=== PATIENT | female | born 1955 | race Caucasian/White ===

== ENCOUNTER → 2017-03-12 | Outpatient (CLI) | payer BC ==
--- NOTE | 2017-03-12 14:38 | CT ---
EXAMINATION TYPE: CT iac wo con DATE OF EXAM: 03/12/2017 COMPARISON: NONE HISTORY: Lt ear pain CT DLP: 150mGycm Automated exposure control for dose reduction was used. FINDINGS: The external auditory canals are patent bilaterally. Mastoid air cells show no evidence of abnormal opacification bilaterally. The middle ear ossicles are symmetric and unremarkable. There is no evidence of suspicious surrounding soft tissue density to suggest cholesteatoma. The scutum is preserved bilaterally. The cochlea and the semicircular canals are symmetric and unremarkable. Ves tibular aqueduct and internal carotid canal appear unremarkable. Temporomandibular joints are mainta ined bilaterally. IMPRESSION: 1. No suspicious acute changes
== END | disposition home or self-care (01) ==
LOC: RADCTMAIN 13:49
PROVIDERS: ATTEND Otolaryngology Otology & Neurotology
DX: H71.12 Cholesteatoma of tympanum, left ear (principal)
CPT/HCPCS: 70480

== ENCOUNTER → 2017-03-16 | Outpatient (CLI) | payer BC ==
--- NOTE | 2017-03-17 12:20 | MM ---
Reason for exam: screening (asymptomatic). Last mammogram was performed 1 year ago. History: Patient is postmenopausal. Family history of breast cancer in aunt and breast cancer in sister at age 62. Took hormonal contraceptives for 3 months beginning at age 19. Took estrogen beginning at age 52. Taking progesterone beginning at age 47. Taking other hormone beginning at age 47. Physical Findings: A clinical breast exam by your physician is recommended on an annual basis and results should be correlated with mammographic findings. MG 3D Screening Mammo W/Cad Bilateral CC and MLO view(s) were taken. Prior study comparison: March 11, 2016, bilateral MG 3d screening mammo w/cad. January 10, 2015, bilateral MG screening mammo w CAD. January 03, 2014, bilateral MG screening mammo w CAD. December 29, 2012, bilateral digital screening mammo w/CAD. The breast tissue is heterogeneously dense. This may lower the sensitivity of mammography. Possible 1.6cm obscured mass 9-10 o'clock right periareolar/subareolar region. Otherwise, no significant change. ASSESSMENT: Incomplete: need additional imaging evaluation, BI-RAD 0 RECOMMENDATION: Ultrasound of the right breast. [facility] will attempt to contact patient to return for ultrasound.
== END | disposition home or self-care (01) ==
LOC: RADMAMWWP 15:39
PROVIDERS: ATTEND Internal Medicine
DX: Z12.31 Encounter for screening mammogram for malignant neoplasm of breast (principal)
CPT/HCPCS: 77063; G0202

== ENCOUNTER → 2017-03-25 | Outpatient (CLI) | payer BC ==
--- NOTE | 2017-03-25 11:15 | USB ---
Reason for exam: additional evaluation requested from abnormal screening. History: Patient is postmenopausal. Family history of breast cancer in aunt and breast cancer in sister at age 62. Took hormonal contraceptives for 3 months beginning at age 19. Took estrogen beginning at age 52. Taking progesterone beginning at age 47. Taking other hormone beginning at age 47. Physical Findings: Nurse Summary: prominent tissue in the right upper outer quadrant/posterior nipples bilaterally all soft, movable (nurse ts). US Breast Workup Limited RT Technologist: Yecenia Parks Right breast ultrasound demonstrates a 1.9 x 0.5 x 0.6cm hypoechoic lesion at 9 o'clock for which a biopsy is recommended and duct ectasia at the posterior nipple. These results were verbally communicated with the patient and result sheet given to the patient on 03/25/17. ASSESSMENT: Suspicious, BI-RAD 4 RECOMMENDATION: Ultrasound core biopsy of the right breast. (9 o'clock) Called Dr. Ga with mammographic findings and has scheduled an appointment for the patient for 04/05/17 at 1:[address] Monson. PRELIMINARY REPORT CALLED AND FAXED TO DR. MONSON ON 03/25/17.
== END | disposition home or self-care (01) ==
LOC: RADUSWWP 09:31
PROVIDERS: ATTEND Internal Medicine
DX: R92.8 Other abnormal and inconclusive findings on diagnostic imaging of breast (principal)

== ENCOUNTER → 2018-04-04 | Outpatient (CLI) | payer BC ==
--- NOTE | 2018-04-05 08:54 | MM ---
Reason for exam: screening (asymptomatic). Last mammogram was performed 1 year ago. History: Patient is postmenopausal. Family history of breast cancer in aunt and breast cancer in sister at age 62. Benign US biopsy breast VAD RT of the right breast, April 14, 2017. Took hormonal contraceptives for 3 months beginning at age 19. Took estrogen beginning at age 52. Taking progesterone beginning at age 47. Taking other hormone beginning at age 47. Physical Findings: A clinical breast exam by your physician is recommended on an annual basis and results should be correlated with mammographic findings. MG 3D Screening Mammo W/Cad Bilateral CC and MLO view(s) were taken. Prior study comparison: April 14, 2017, right breast MG diagnostic mammo RT wo CAD. March 16, 2017, bilateral MG 3d screening mammo w/cad. The breast tissue is heterogeneously dense. This may lower the sensitivity of mammography. No suspicious abnormality. Right biopsy marker noted. No significant changes when compared with prior studies. ASSESSMENT: Negative, BI-RAD 1 RECOMMENDATION: Routine screening mammogram of both breasts in 1 year.
== END | disposition home or self-care (01) ==
LOC: RADMAMWWP 10:47
PROVIDERS: ATTEND Internal Medicine
DX: Z12.31 Encounter for screening mammogram for malignant neoplasm of breast (principal)
CPT/HCPCS: 77063; 77067

== ENCOUNTER 2019-07-21 10:56 | Observation (INO) | payer BC ==
--- NOTE | 2019-07-21 11:31 | ED ---
General Adult HPI - General Chief complaint: Skin/Abscess/Foreign Body Stated complaint: infection Time Seen by Provider: 07/21/19 11:19 Source: patient, RN notes reviewed Mode of arrival: ambulatory Limitations: no limitations - History of Present Illness Initial comments: Patient is a pleasant 63-year-old female presenting to the emergency department with complaints of right sided abdominal wound. Patient first noticed this a couple weeks ago. Patient has been on antibiotics, Bactrim and mupirocin ointment for the past 6 days. Patient did follow-up with her doctor symptoms have been worsening and she was advised come the emergency Department. No fevers however patient has had chills. No history of similar symptoms previously. - Related Data Home Medications Medication Instructions Recorded Confirmed Calcium Carbonate/Vitamin D3 1 each PO DAILY 04/06/17 04/14/17 [Calcium 500-Vit D3 200 Tablet] Cetirizine HCl 10 mg PO DAILY 04/06/17 04/14/17 Fluticasone Nasal [place] [Flonase 1 puff NASAL DAILY PRN 04/06/17 04/14/17 Nasal [place]] Potassium Gluconate 1 each PO DAILY 04/06/17 04/14/17 Allergies Allergy/AdvReac Type Severity Reaction Status Date / Time ciprofloxacin Allergy Swelling Verified 04/14/17 11:47 Latex, Natural Rubber Allergy Rash/Hives Verified 04/14/17 11:47 levofloxacin Allergy Anaphylaxis Verified 04/14/17 11:47 ofloxacin Allergy Swelling Verified 04/14/17 11:47 Penicillins Allergy Swelling Verified 04/14/17 11:47 Quinolones Allergy Swelling Verified 04/14/17 11:47 Review of Systems ROS Statement: Those systems with pertinent positive or pertinent negative responses have been documented in the HPI. ROS Other: All systems not noted in ROS Statement are negative. Constitutional: Reports: chills. Denies: fever Eyes: Denies: eye pain ENT: Denies: ear pain Respiratory: Denies: dyspnea Cardiovascular: Denies: chest pain Endocrine: Denies: fatigue Gastrointestinal: Denies: abdominal pain Genitourinary: Denies: dysuria Musculoskeletal: Denies: back pain Skin: Reports: as per HPI, rash Past Medical History Additional Past Medical History / Comment(s): macular degeneration, seasonal allergies History of Any Multi-Drug Resistant Organisms: None Reported Past Surgical History: Ear Surgery, Hysterectomy Additional Past Surgical History / Comment(s): mastiodectomy left ear Additional Past Anesthesia/Blood Transfusion Reaction / Comment(s): hallucinates after anesthesia Past Psychological History: No Psychological Hx Reported Smoking Status: Current every day smoker Past Alcohol Use History: Occasional Past Drug Use History: None Reported General Exam Limitations: no limitations General appearance: alert, in no apparent distress Head exam: Present: normocephalic Eye exam: Present: normal appearance Neck exam: Present: normal inspection Respiratory exam: Present: normal lung sounds bilaterally Cardiovascular Exam: Present: regular rate, normal rhythm GI/Abdominal exam: Present: soft. Absent: distended, tenderness (Except for owens perficial area of infection) Extremities exam: Present: normal inspection Neurological exam: Present: alert Psychiatric exam: Present: normal affect, normal mood Skin exam: Present: other (Right lower abdomen with approximately 4 x 4 centimeters area of induration and erythema. There is an open area with purulent drainage. There is tenderness.) Course Vital Signs 07/21/19 11:04 Temperature 99.0 F Pulse Rate 95 Respiratory 18 Rate Blood Pressure 148/77 O2 Sat by Pulse 95 Oximetry Medical Decision Making - Medical Decision Making Patient reevaluated and updated. Case was discussed with Dr. Ramirez, who will admit covered for Dr. ga. Patient's area does appear to be abscesses open and draining. Patient refuses I&D at this time and states she would need deep sedation. Patient has failed outpatient Bactrim and mupirocin ointment. - Lab Data Result diagrams: 07/21/19 11:59 07/21/19 11:59 Lab Results 07/21/19 07/21/19 07/21/19 Range/Units 11:59 11:59 11:59 WBC 8.6 (3.8-10.6) k/uL RBC 4.80 (3.80-5.40) m/uL Hgb 14.6 (11.4-16.0) gm/dL Hct 44.3 (34.0-46.0) % MCV 92.3 (80.0-100.0) fL MCH 30.5 (25.0-35.0) pg MCHC 33.0 (31.0-37.0) g/dL RDW 13.2 (11.5-15.5) % Plt Count 255 (150-450) k/uL Neutrophils % 69 % Lymphocytes % 18 % Monocytes % 6 % Eosinophils % 3 % Basophils % 3 % Neutrophils # 5.9 (1.3-7.7) k/uL Lymphocytes # 1.6 (1.0-4.8) k/uL Monocytes # 0.5 (0-1.0) k/uL Eosinophils # 0.3 (0-0.7) k/uL Basophils # 0.3 H (0-0.2) k/uL PT (9.0-12.0) sec INR (<1.2) APTT (22.0-30.0) sec Sodium 138 (137-145) mmol/L Potassium 4.5 (3.5-5.1) mmol/L Chloride 105 (98-107) mmol/L Carbon Dioxide 22 (22-30) mmol/L Anion Gap 11 mmol/L BUN 11 (7-17) mg/dL Creatinine 0.72 (0.52-1.04) mg/dL Est GFR (CKD-EPI)AfAm >90 (>60 ml/min/1.73 sqM) Est GFR (CKD-EPI)NonAf 90 (>60 ml/min/1.73 sqM) Glucose 123 H (74-99) mg/dL Plasma Lactic Acid Wilbert 1.4 (0.7-2.0) mmol/L Calcium 9.7 (8.4-10.2) mg/dL Total Bilirubin 0.4 (0.2-1.3) mg/dL AST 43 H (14-36) U/L ALT 53 H (4-34) U/L Alkaline Phosphatase 95 (38-126) U/L Total Protein 7.4 (6.3-8.2) g/dL Albumin 4.6 (3.5-5.0) g/dL 07/21/19 Range/Units 11:59 WBC (3.8-10.6) k/uL RBC (3.80-5.40) m/uL Hgb (11.4-16.0) gm/dL Hct (34.0-46.0) % MCV (80.0-100.0) fL MCH (25.0-35.0) pg MCHC (31.0-37.0) g/dL RDW (11.5-15.5) % Plt Count (150-450) k/uL Neutrophils % % Lymphocytes % % Monocytes % % Eosinophils % % Basophils % % Neutrophils # (1.3-7.7) k/uL Lymphocytes # (1.0-4.8) k/uL Monocytes # (0-1.0) k/uL Eosinophils # (0-0.7) k/uL Basophils # (0-0.2) k/uL PT 9.9 (9.0-12.0) sec INR 0.9 (<1.2) APTT 24.0 (22.0-30.0) sec Sodium (137-145) mmol/L Potassium (3.5-5.1) mmol/L Chloride (98-107) mmol/L Carbon Dioxide (22-30) mmol/L Anion Gap mmol/L BUN (7-17) mg/dL Creatinine (0.52-1.04) mg/dL Est GFR (CKD-EPI)AfAm (>60 ml/min/1.73 sqM) Est GFR (CKD-EPI)NonAf (>60 ml/min/1.73 sqM) Glucose (74-99) mg/dL Plasma Lactic Acid Wilbert (0.7-2.0) mmol/L Calcium (8.4-10.2) mg/dL Total Bilirubin (0.2-1.3) mg/dL AST (14-36) U/L ALT (4-34) U/L Alkaline Phosphatase (38-126) U/L Total Protein (6.3-8.2) g/dL Albumin (3.5-5.0) g/dL Disposition Clinical Impression: Abdominal wall abscess Disposition: ADMITTED IP TO THIS HOSP Is patient prescribed a controlled substance at d/c from ED?: No Referrals: Laura Ga MD [Primary Care Provider] - 1-2 days Decision Time: 13:07
[2019-07-21] MEDS: SODIUM CHLORIDE 0.9% 500 ML 500 ML IV SCH (12:08)
[2019-07-21 12:19] LABS: Basophils # (A) 0.3 k/uL (0-0.2); Basophils % (A) 3 %; Eosinophils # (A) 0.3 k/uL (0-0.7); Eosinophils % (A) 3 %; HCT 44.3 % (34.0-46.0); HGB 14.6 gm/dL (11.4-16.0); Lymphocytes # (A) 1.6 k/uL (1.0-4.8); Lymphocytes % (A) 18 %; MCH 30.5 pg (25.0-35.0); MCV 92.3 fL (80.0-100.0); Mean Platelet Volume 7.5; Monocytes # (A) 0.5 k/uL (0-1.0); Monocytes % (A) 6 %; Neutrophils # (A) 5.9 k/uL (1.3-7.7); Neutrophils % (A) 69 %; Platelet Count 255 k/uL (150-450); RDW 13.2 % (11.5-15.5); WBC 8.6 k/uL (3.8-10.6)
[2019-07-21 12:27] LABS: ALT 53 U/L (4-34); AST 43 U/L (14-36); African American GFR (CKD) >90 (>60 ml/min/1.73 sqM); Albumin 4.6 g/dL (3.5-5.0); Alkaline Phosphatase 95 U/L (38-126); Anion Gap 11 mmol/L; Blood Urea Nitrogen 11 mg/dL (7-17); Calcium 9.7 mg/dL (8.4-10.2); Carbon Dioxide 22 mmol/L (22-30); Chloride 105 mmol/L (98-107); Glucose 123 mg/dL (74-99); Non-African American GFR(CKD) 90 (>60 ml/min/1.73 sqM); Potassium 4.5 mmol/L (3.5-5.1); Sodium 138 mmol/L (137-145); Total Bilirubin 0.4 mg/dL (0.2-1.3); Total Protein 7.4 g/dL (6.3-8.2)
[2019-07-21] MEDS ORDERED: Acetaminophen-Codeine 300-30mg TAB PO STA (12:33)
[2019-07-21 12:53] LABS: INR 0.9 (<1.2); Prothrombin Time 9.9 sec (9.0-12.0)
[2019-07-21] MEDS ORDERED: cefTRIAXone IN SWFI 1,000 MG/10 ML SYRINGE IVP STA (13:08)
[2019-07-21] MEDS ORDERED: VANCOMYCIN IV PER PHARMACY 1 EACH MISC MISCELLANE PRN (13:08)
[2019-07-21] MEDS ORDERED: NALOXONE 0.4 MG/ML 1 ML VIAL IV PRN (13:09)
[2019-07-21] MEDS: SODIUM CHLORIDE 0.9% 1,000 ML IV SCH (13:34)
[2019-07-21] MEDS ORDERED: VANCOMYCIN 1,250 MG in SODIUM CHLORIDE 0.9% 250 ML IVPB ONE (14:00)
[2019-07-21] MEDS: NICOTINE 21MG/24HR PATCH TRANSDERM SCH (20:44)
[2019-07-21] MEDS: Acetaminophen-Codeine 300-30mg TAB PO PRN (20:44)
--- NOTE | 2019-07-21 23:08 | P.HPIM ---
History of Present Illness H&P Date: 07/21/19 Chief Complaint: Abdominal wound Patient is a 63-year-old female with a known history of macular degeneration, seasonal ALLERGIES, right sided hearing loss and ongoing nicotine addiction came to ER with the complaints of right-sided abdominal wound infection. Patient says that she's been having redness, developed due to rubbing of skin with her pants about 2 weeks ago and since then the redness is getting worse. Patient was seen by her primary care physician and was started on antibiotics in the form of Bactrim and also mupirocin ointment about a week ago. Upon follow-up with her primary care physician, noted to have worsening abdominal wound and possible fluid collection/abscess. Patient was sent to ER for further evaluation. Patient otherwise denied any complaints of chest pain or shortness of breath. No fever no chills. No nausea vomiting or abdominal pain or diarrhea. No dysuria or hematuria. Patient is ALLERGIC to multiple antibiotics. WBC 8.6, AST 43 and ALT 53 Review of Systems Constitutional: Patient denies any fever or chills . No generalized weakness or weight loss. Abdomen: Patient denied nausea vomiting and diarrhea and abdominal pain. Cardiovascular: Patient denies any chest pain or short of breath no palpitations. Respiratory: patient denied any cough is from production. No shortness of breath Neurologic: Patient denied any numbness or tingling headache. Musculoskeletal: Patient denies any complaints of joint swelling or deformity. Skin: Right sided abdominal wound. Psychiatric: Negative Endocrine: No heat or cold intolerance. No recent weight gain. Genitourinary: No dysuria or hematuria. All other 14 point ROS negative except the above Past Medical History Additional Past Medical History / Comment(s): macular degeneration, seasonal allergies History of Any Multi-Drug Resistant Organisms: None Reported Past Surgical History: Ear Surgery, Hysterectomy Additional Past Surgical History / Comment(s): mastiodectomy left ear Additional Past Anesthesia/Blood Transfusion Reaction / Comment(s): hallucinates after anesthesia Past Psychological History: No Psychological Hx Reported Additional Psychological History / Comment(s): Lives at home with spouse. Drives. Independent with ADL's Smoking Status: Current every day smoker Past Alcohol Use History: Occasional Past Drug Use History: None Reported - Past Family History Sister(s) Family Medical History: Cancer Father Family Medical History: Congestive Heart Failure (CHF) Medications and Allergies Home Medications Medication Instructions Recorded Confirmed Type Cetirizine HCl 10 mg PO DAILY 04/06/17 07/21/19 History Ascorbic Acid [Vitamin C] 500 mg PO DAILY 07/21/19 07/21/19 History Calcium Carbonate [Calcium] 600 mg PO DAILY 07/21/19 07/21/19 History Multivitamins, Thera [Multivitamin 1 tab PO DAILY 07/21/19 07/21/19 History (formulary)] Vit C/E/Zn/Coppr/Lutein/Zeaxan 1 cap PO DAILY 07/21/19 07/21/19 History [Preservision Areds 2 Softgel] Allergies Allergy/AdvReac Type Severity Reaction Status Date / Time ciprofloxacin Allergy Swelling Verified 07/21/19 14:30 Latex, Natural Rubber Allergy Rash/Hives Verified 07/21/19 14:30 levofloxacin Allergy Anaphylaxis Verified 07/21/19 14:30 ofloxacin Allergy Swelling Verified 07/21/19 14:30 Penicillins Allergy Swelling Verified 07/21/19 14:30 Quinolones Allergy Swelling Verified 07/21/19 14:30 Physical Exam Vitals: Vital Signs Temp Pulse Pulse Resp BP BP Pulse Ox 07/21/19 16:51 97.8 F 71 16 136/67 96 07/21/19 14:31 98.4 F 90 16 146/77 98 07/21/19 13:40 98.6 F 91 20 147/81 100 07/21/19 11:04 99.0 F 95 18 148/77 95 Intake and Output 07/21/19 07/21/19 07/21/19 06:59 14:59 22:59 Other: Weight 69.127 kg 69.127 kg PHYSICAL EXAMINATION: Patient is lying in the bed comfortably, no acute distress, awake alert and oriented.. HEENT: Normocephalic. Neck is supple. Pupils reactive. Nostrils clear. Oral cavity is moist. Ears reveal no drainage. Neck reveals no JVD, carotid bruits, or thyromegaly. CHEST EXAMINATION: Trachea is central. Symmetrical expansion. Lung ordoñez clear to auscultation and percussion. CARDIAC: Normal S1, S2 with no gallops. No murmurs ABDOMEN: Soft. Right lower abdominal wound with fluid collection with purulent discharge, tenderness present. Bowel sounds normal. No organomegaly. No abdominal bruits. Extremities: reveal no edema. No clubbing or cyanosis Neurologically awake, alert, oriented x3 with well-coordinated movements. No focal deficits noted Skin: No rash or skin lesions. Psychiatric: Coperative. Nonsuicidal Musculoskeletal: No joint swelling or deformity. Normal range of motion. Results CBC & Chem 7: 07/21/19 11:59 02 11:59 Labs: Abnormal Lab Results - Last 24 Hours (Table) 07/21/19 07/21/19 Range/Units 11:59 11:59 Basophils # 0.3 H (0-0.2) k/uL Glucose 123 H (74-99) mg/dL AST 43 H (14-36) U/L ALT 53 H (4-34) U/L Microbiology - Last 24 Hours (Table) 07/21/19 11:59 Wound Culture - Preliminary Abdomen Thrombosis Risk Factor Assmnt - DVT/VTE Prophylaxis DVT/VTE Prophylaxis: Pharmacologic Prophylaxis ordered - Choose All That Apply Each Risk Factor Represents 2 Points: Age 61-74 years Thrombosis Risk Factor Assessment Total Risk Factor Score: 2 Thrombosis Risk Factor Assessment Level: Low Risk Assessment and Plan Assessment: Right-sided abdominal abscess with surrounding cellulitis. Failed outpatient therapy with Bactrim. Multiple antibiotic ALLERGIES Right-sided hearing difficulty Currently with a smoker Macular degeneration Seasonal ALLERGIES DVT prophylaxis Plan: Patient be continued on antibiotics in the form of vancomycin. Gentle hydration. Gen. surgery was consulted for possible I&D. Follow up wound culture reports. Further recommendations based on the clinical course. Smoking cessation has been counseled extensively Time with Patient: Greater than 30
[2019-07-21] MEDS: HEPARIN SODIUM,PORCINE 5,000 UNIT/ML 1 ML VIAL SQ SCH (23:34)
[2019-07-22] MEDS: SODIUM CHLORIDE 0.9% 1,000 ML IV SCH ×2 (02:13→13:57)
[2019-07-22] MEDS: VANCOMYCIN 1,250 MG in SODIUM CHLORIDE 0.9% 250 ML IVPB SCH ×2 (06:04→22:04)
[2019-07-22] MEDS: HEPARIN SODIUM,PORCINE 5,000 UNIT/ML 1 ML VIAL SQ SCH ×3 (07:21→22:07)
[2019-07-22] MEDS: ASCORBIC ACID 500 MG TAB PO SCH (07:22)
[2019-07-22] MEDS: VIT A,C & E-LUTEIN-MINERALS 1 EACH TAB PO SCH (07:22)
[2019-07-22] MEDS: MULTIVITAMINS, THERA 1 EACH TAB PO SCH (07:22)
[2019-07-22] MEDS: CALCIUM CARBONATE 500 MG CHEWABLE PO SCH (07:22)
[2019-07-22] MEDS: NICOTINE 21MG/24HR PATCH TRANSDERM SCH (07:22)
[2019-07-22 08:27] LABS: Basophils # (A) 0.1 k/uL (0-0.2); Basophils % (A) 1 %; Eosinophils # (A) 0.3 k/uL (0-0.7); Eosinophils % (A) 4 %; HCT 40.7 % (34.0-46.0); HGB 13.3 gm/dL (11.4-16.0); Lymphocytes # (A) 1.8 k/uL (1.0-4.8); Lymphocytes % (A) 26 %; MCH 30.6 pg (25.0-35.0); MCHC 32.7 g/dL (31.0-37.0); MCV 93.7 fL (80.0-100.0); Mean Platelet Volume 7.4; Monocytes # (A) 0.4 k/uL (0-1.0); Monocytes % (A) 6 %; Neutrophils # (A) 4.1 k/uL (1.3-7.7); Neutrophils % (A) 60 %; Platelet Count 234 k/uL (150-450); RBC 4.34 m/uL (3.80-5.40); RDW 13.2 % (11.5-15.5); WBC 6.7 k/uL (3.8-10.6)
--- NOTE | 2019-07-22 11:44 | P.GSCN ---
History of Present Illness Consult date: 07/22/19 Reason for Consult: Abdominal wall abscess History of present illness: This a 63-year-old female who has had complaints of intermittent swelling of her right lower quadrant abdominal wall. Patient was treated with oral antibodies. Patient developed an abscess which which spontaneously drained. Patient currently receiving IV antibiotics. Past Medical History Additional Past Medical History / Comment(s): macular degeneration, seasonal allergies History of Any Multi-Drug Resistant Organisms: None Reported Past Surgical History: Ear Surgery, Hysterectomy Additional Past Surgical History / Comment(s): mastiodectomy left ear Additional Past Anesthesia/Blood Transfusion Reaction / Comm: hallucinates after anesthesia Past Psychological History: No Psychological Hx Reported Additional Psychological History / Comment(s): Lives at home with spouse. Drives. Independent with ADL's Smoking Status: Current every day smoker Past Alcohol Use History: Occasional Past Drug Use History: None Reported - Past Family History Sister(s) Family Medical History: Cancer Father Family Medical History: Congestive Heart Failure (CHF) Medications and Allergies Home Medications Medication Instructions Recorded Confirmed Type Cetirizine HCl 10 mg PO DAILY 04/06/17 07/21/19 History Ascorbic Acid [Vitamin C] 500 mg PO DAILY 07/21/19 07/21/19 History Calcium Carbonate [Calcium] 600 mg PO DAILY 07/21/19 07/21/19 History Multivitamins, Thera [Multivitamin 1 tab PO DAILY 07/21/19 07/21/19 History (formulary)] Vit C/E/Zn/Coppr/Lutein/Zeaxan 1 cap PO DAILY 07/21/19 07/21/19 History [Preservision Areds 2 Softgel] Allergies Allergy/AdvReac Type Severity Reaction Status Date / Time ciprofloxacin Allergy Swelling Verified 07/21/19 14:30 Latex, Natural Rubber Allergy Rash/Hives Verified 07/21/19 14:30 levofloxacin Allergy Anaphylaxis Verified 07/21/19 14:30 ofloxacin Allergy Swelling Verified 07/21/19 14:30 Penicillins Allergy Swelling Verified 07/21/19 14:30 Quinolones Allergy Swelling Verified 07/21/19 14:30 Surgical - Exam Vital Signs Temp Pulse Resp BP Pulse Ox 99.0 F 95 18 148/77 95 07/21/19 11:04 07/21/19 11:04 07/21/19 11:04 07/21/19 11:04 07/21/19 11:04 - General well developed, no distress - Eyes PERRL - ENT normal pinna - Neck no masses - Respiratory normal expansion - Cardiovascular Rhythm: regular - Abdomen Abdomen: soft, non tender - Integumentary 3 cm right lower quadrant abscess. The abscess is pointing to drain. It is mildly tender. Patient states that it is improved from yesterday. Results - Labs 07/22/19 07:36 07/21/19 11:59 Abnormal Lab Results - Last 24 Hours (Table) 07/21/19 07/21/19 Range/Units 11:59 11:59 Basophils # 0.3 H (0-0.2) k/uL Glucose 123 H (74-99) mg/dL AST 43 H (14-36) U/L ALT 53 H (4-34) U/L Microbiology - Last 24 Hours (Table) 07/21/19 11:59 Gram Stain - Preliminary Abdomen Wound Culture - Preliminary Diabetes panel 07/21/19 Range/Units 11:59 Sodium 138 (137-145) mmol/L Potassium 4.5 (3.5-5.1) mmol/L Chloride 105 (98-107) mmol/L Carbon Dioxide 22 (22-30) mmol/L BUN 11 (7-17) mg/dL Creatinine 0.72 (0.52-1.04) mg/dL Glucose 123 H (74-99) mg/dL Calcium 9.7 (8.4-10.2) mg/dL AST 43 H (14-36) U/L ALT 53 H (4-34) U/L Alkaline Phosphatase 95 (38-126) U/L Total Protein 7.4 (6.3-8.2) g/dL Albumin 4.6 (3.5-5.0) g/dL Calcium panel 07/21/19 Range/Units 11:59 Calcium 9.7 (8.4-10.2) mg/dL Albumin 4.6 (3.5-5.0) g/dL Pituitary panel 07/21/19 Range/Units 11:59 Sodium 138 (137-145) mmol/L Potassium 4.5 (3.5-5.1) mmol/L Chloride 105 (98-107) mmol/L Carbon Dioxide 22 (22-30) mmol/L BUN 11 (7-17) mg/dL Creatinine 0.72 (0.52-1.04) mg/dL Glucose 123 H (74-99) mg/dL Calcium 9.7 (8.4-10.2) mg/dL Adrenal panel 07/21/19 Range/Units 11:59 Sodium 138 (137-145) mmol/L Potassium 4.5 (3.5-5.1) mmol/L Chloride 105 (98-107) mmol/L Carbon Dioxide 22 (22-30) mmol/L BUN 11 (7-17) mg/dL Creatinine 0.72 (0.52-1.04) mg/dL Glucose 123 H (74-99) mg/dL Calcium 9.7 (8.4-10.2) mg/dL Total Bilirubin 0.4 (0.2-1.3) mg/dL AST 43 H (14-36) U/L ALT 53 H (4-34) U/L Alkaline Phosphatase 95 (38-126) U/L Total Protein 7.4 (6.3-8.2) g/dL Albumin 4.6 (3.5-5.0) g/dL Assessment and Plan Assessment: Right lower quadrant subcutaneous abscess. The abscess drained. We will observe her. If needed she'll undergo incision and drainage tomorrow.
[2019-07-22] MEDS: Acetaminophen-Codeine 300-30mg TAB PO PRN (20:24)
--- NOTE | 2019-07-23 | P.PN ---
Subjective Progress Note Date: 07/22/19 Ms. Pearson is a 63-year-old female with a known history of macular degeneration, seasonal ALLERGIES, right sided hearing loss and ongoing nicotine addiction came to ER with the complaints of right-sided abdominal wound infection. Patient says that she's been having redness, developed due to rubbing of skin with her pants about 2 weeks ago and since then the redness is getting worse. Patient was seen by her primary care physician and was started on antibiotics in the form of Bactrim and also mupirocin ointment about a week ago. Upon follow-up with her primary care physician, noted to have worsening abdominal wound and possible fluid collection/abscess. Patient was sent to ER for further evaluat ion.Due to patient's multiple drug allergies she has been started on vancomycin and general surgery consult was obtained. On 07/22/2019 --patient is comfortably lying in bed appears to be no acute distress. She complains of pain in the right side of the lower abdomen where she has the abscess. She states that it is still draining pus. Patient denies having any nausea vomiting or constipation. No chest pain or palpitations. No dysuria or hematuria. Objective - Vital Signs Vital signs: Vital Signs Temp 98.0 F 07/22/19 14:29 Pulse 79 07/22/19 14:29 Resp 16 07/22/19 14:29 BP 143/70 07/22/19 14:29 Pulse Ox 96 07/22/19 14:29 Intake & Output 07/21/19 07/22/19 07/22/19 18:59 06:59 18:59 Intake Total 600 Balance 600 Weight 69.127 kg Intake: Oral 600 Other: Voiding Method Toilet # Voids 2 2 - Exam GEN. APPEARANCE: alert, in no apparent distress HEENT : No pallor, no icterus, No JVD RESPIRATORY EXAM: normal lung sounds bilaterally. Absent: respiratory distress, wheezes, rales, rhonchi, stridor CARDIOVASCULAR EXAM: regular rate, normal rhythm, normal heart sounds. Absent: systolic murmur, diastolic murmur, rubs, gallop, clicks GI/ABDOMINAL EXAM: soft, normal bowel sounds. Right lower abdominal wall abscess .+ tenderness with surrounding redness. EXTREMITIES EXAM: N edema NEUROLOGICAL EXAM: alert, oriented X3,no focal deficits - Labs CBC & Chem 7: 07/22/19 07:36 07/21/19 11:59 Labs: Microbiology - Last 24 Hours (Table) 07/21/19 12:18 Blood Culture - Preliminary Blood No Growth after 24 hours 07/21/19 11:59 Blood Culture - Preliminary Blood No Growth after 24 hours 07/21/19 11:59 Gram Stain - Preliminary Abdomen Wound Culture - Preliminary Assessment and Plan Assessment: Assessment: Right-sided abdominal abscess with surrounding cellulitis. Failed outpatient therapy with Bactrim. Multiple antibiotic ALLERGIES Right-sided hearing difficulty Currently daily smoker Macular degeneration Seasonal ALLERGIES DVT prophylaxis Plan: Patient be continued on antibiotics in the form of vancomycin. Gentle hydration. Gen. surgery on board for possible I&D. Follow up wound culture reports. Further recommendations based on the clinical course.
[2019-07-23] MEDS: SODIUM CHLORIDE 0.9% 1,000 ML IV SCH ×2 (05:15→20:09)
[2019-07-23] MEDS: HEPARIN SODIUM,PORCINE 5,000 UNIT/ML 1 ML VIAL SQ SCH ×2 (07:50→13:38)
[2019-07-23] MEDS: VIT A,C & E-LUTEIN-MINERALS 1 EACH TAB PO SCH (07:51)
[2019-07-23] MEDS: NICOTINE 21MG/24HR PATCH TRANSDERM SCH (07:52)
[2019-07-23] MEDS: MULTIVITAMINS, THERA 1 EACH TAB PO SCH (07:52)
[2019-07-23] MEDS: ASCORBIC ACID 500 MG TAB PO SCH (07:52)
[2019-07-23] MEDS: CALCIUM CARBONATE 500 MG CHEWABLE PO SCH (07:55)
[2019-07-23 09:38] LABS: Basophils # (A) 0.1 k/uL (0-0.2); Basophils % (A) 2 %; Eosinophils # (A) 0.3 k/uL (0-0.7); Eosinophils % (A) 3 %; HCT 41.5 % (34.0-46.0); HGB 13.8 gm/dL (11.4-16.0); Lymphocytes # (A) 1.6 k/uL (1.0-4.8); Lymphocytes % (A) 19 %; MCH 30.4 pg (25.0-35.0); MCHC 33.3 g/dL (31.0-37.0); MCV 91.3 fL (80.0-100.0); Mean Platelet Volume 7.3; Monocytes # (A) 0.4 k/uL (0-1.0); Monocytes % (A) 5 %; Neutrophils # (A) 5.7 k/uL (1.3-7.7); Neutrophils % (A) 68 %; Platelet Count 279 k/uL (150-450); RBC 4.55 m/uL (3.80-5.40); RDW 13.1 % (11.5-15.5); WBC 8.4 k/uL (3.8-10.6)
[2019-07-23 09:54] LABS: African American GFR (CKD) >90 (>60 ml/min/1.73 sqM); Anion Gap 7 mmol/L; Blood Urea Nitrogen 10 mg/dL (7-17); Calcium 9.5 mg/dL (8.4-10.2); Carbon Dioxide 26 mmol/L (22-30); Chloride 106 mmol/L (98-107); Glucose 104 mg/dL (74-99); Non-African American GFR(CKD) >90 (>60 ml/min/1.73 sqM); Potassium 4.4 mmol/L (3.5-5.1); Sodium 139 mmol/L (137-145)
[2019-07-23] MEDS: Acetaminophen-Codeine 300-30mg TAB PO PRN ×2 (10:27→21:25)
--- NOTE | 2019-07-23 10:55 | P.PN ---
Progress Note - Text Progress Note Date: 07/23/19 The patient's right lower quadrant abdominal wall abscess improving. She's had significant drainage overnight. There is less erythema and induration. We will continue local wound care and IV antibiotics.
[2019-07-23] MEDS: VANCOMYCIN 1,250 MG in SODIUM CHLORIDE 0.9% 250 ML IVPB SCH (13:35)
--- NOTE | 2019-07-23 22:41 | P.CONS ---
History of Present Illness - Reason for Consult Consult date: 07/23/19 abdominal wall abscess and cellulitis Requesting physician: Starr Jones - Chief Complaint right lower abdominal wall wound and redness x weeks - History of Present Illness Patient is a 63-year-old female presenting to the ER at [facility] on 07/21/2019 with C complaints of right-sided abdominal wound and swelling, apparently the patient noticed small area of swelling on the right-sided abdominal wall couple of weeks ago that has been treated in the past with Bactrim and Bactroban cream patient on follow-up visit noticed to have persistent swelling and redness has the patient was advised to go to the hospital, patient was evaluated by the ER physician, patient on presentation hospital did have low-grade fever of 99 however her white count has been normal the patient has been treated with Rocephin and vancomycin local cultures have b een up and which are currently pending infectious disease was consulted for further recommendation regarding antibiotic therapy patient has been evaluated by general surgery recommended no surgical drainage at this point Review of Systems Positive point has been mentioned in the HPI rest of the systems are negative Past Medical History Additional Past Medical History / Comment(s): macular degeneration, seasonal allergies History of Any Multi-Drug Resistant Organisms: None Reported Past Surgical History: Ear Surgery, Hysterectomy Additional Past Surgical History / Comment(s): mastiodectomy left ear Additional Past Anesthesia/Blood Transfusion Reaction / Comm: hallucinates after anesthesia Past Psychological History: No Psychological Hx Reported Additional Psychological History / Comment(s): Lives at home with spouse. Drives. Independent with ADL's Smoking Status: Current every day smoker Past Alcohol Use History: Occasional Past Drug Use History: None Reported - Past Family History Sister(s) Family Medical History: Cancer Father Family Medical History: Congestive Heart Failure (CHF) Medications and Allergies Home Medications Medication Instructions Recorded Confirmed Type Cetirizine HCl 10 mg PO DAILY 04/06/17 07/21/19 History Ascorbic Acid [Vitamin C] 500 mg PO DAILY 07/21/19 07/21/19 History Calcium Carbonate [Calcium] 600 mg PO DAILY 07/21/19 07/21/19 History Multivitamins, Thera [Multivitamin 1 tab PO DAILY 07/21/19 07/21/19 History (formulary)] Vit C/E/Zn/Coppr/Lutein/Zeaxan 1 cap PO DAILY 07/21/19 07/21/19 History [Preservision Areds 2 Softgel] Allergies Allergy/AdvReac Type Severity Reaction Status Date / Time ciprofloxacin Allergy Swelling Verified 07/21/19 14:30 Latex, Natural Rubber Allergy Rash/Hives Verified 07/21/19 14:30 levofloxacin Allergy Anaphylaxis Verified 07/21/19 14:30 ofloxacin Allergy Swelling Verified 07/21/19 14:30 Penicillins Allergy Swelling Verified 07/21/19 14:30 Quinolones Allergy Swelling Verified 07/21/19 14:30 Physical Exam Vitals: Vital Signs Temp Pulse Resp BP Pulse Ox 07/23/19 15:00 98.2 F 80 16 171/73 96 07/23/19 05:00 98.2 F 80 18 134/62 95 Intake and Output 07/23/19 07/23/19 07/23/19 06:59 14:59 22:59 Intake Total 0 200 Balance 0 200 Intake: Oral 0 200 Other: Voiding Method Toilet Toilet Toilet # Voids 2 2 1 GENERAL DESCRIPTION: Middle-aged female lying in bed, no distress. No tachypnea or accessory muscle of respiration use. HEENT: Shows Pallor , no scleral icterus. Oral mucous membrane is dry. No pharyngeal erythema or thrush NECK: Trachea central, no thyromegaly. LUNGS: Unlabored breathing. Clear to auscultation anteriorly. No wheeze or crackle. HEART: S1, S2, regular rate and rhythm. No loud murmur ABDOMEN: Soft, right lower quadrant abdominal wound with some drainage on the d ressing, mild tenderness , no guarding or rigidity, no organomegaly EXTREMITIES: No edema of feet. SKIN: No rash, no masses palpable. NEUROLOGICAL: The patient is awake, alert, oriented x3, mood and affect normal. Results CBC & Chem 7: 07/23/19 08:57 07/23/19 08:57 Labs: Abnormal Lab Results - Last 24 Hours (Table) 07/23/19 Range/Units 08:57 Glucose 104 H (74-99) mg/dL Microbiology - Last 24 Hours (Table) 07/21/19 12:18 Blood Culture - Preliminary Blood No Growth after 48 hours 07/21/19 11:59 Gram Stain - Final Abdomen Wound Culture - Final 07/21/19 11:59 Blood Culture - Preliminary Blood No Growth after 48 hours Assessment and Plan Assessment: 1- patient with abdominal wall abscess and cellulitis which apparently has been going on for a few weeks and has failed outpatient oral Bactrim DS and Bactroban treatment patient did have some spontaneous drainage however the area is still indurated patient did need workup to determine the depth of this infection and dementia not communicating with the bowel 2-Patient with multiple antibiotic ALLERGIES that would limit the number of antibiotic safe to use (1) Abdominal wall abscess Current Visit: Yes Status: Acute Code(s): L02.211 - CUTANEOUS ABSCESS OF ABDOMINAL WALL SNOMED Code(s): 54348995 Plan: 1- plan CT of abdominal pelvis to determine the depth of this abscess and dementia not communicating with the bowel 2-Vancomycin pharmacy to dose target trough of 15 while watching his kidney function and Vanco trough closely We will follow on clinical condition and cultures to further adjust medication if needed Thank you for this consultation will follow this patient with you Time with Patient: Greater than 30
[2019-07-23] MEDS ORDERED: IOPAMIDOL CONTRAST (ORAL USE) VIAL PO PRN (23:00)
[2019-07-24] MEDS: HEPARIN SODIUM,PORCINE 5,000 UNIT/ML 1 ML VIAL SQ SCH ×3 (01:06→15:57)
[2019-07-24] MEDS: VANCOMYCIN 1,250 MG in SODIUM CHLORIDE 0.9% 250 ML IVPB SCH ×2 (01:07→15:55)
[2019-07-24] MEDS: IOPAMIDOL CONTRAST (ORAL USE) VIAL PO PRN ×2 (06:23→06:24)
[2019-07-24] MEDS: CALCIUM CARBONATE 500 MG CHEWABLE PO SCH (08:26)
[2019-07-24] MEDS: NICOTINE 21MG/24HR PATCH TRANSDERM SCH (08:26)
[2019-07-24] MEDS: ASCORBIC ACID 500 MG TAB PO SCH (08:26)
[2019-07-24] MEDS: MULTIVITAMINS, THERA 1 EACH TAB PO SCH (08:26)
[2019-07-24] MEDS: VIT A,C & E-LUTEIN-MINERALS 1 EACH TAB PO SCH (08:32)
[2019-07-24] MEDS: SODIUM CHLORIDE 0.9% 1,000 ML IV SCH ×2 (08:36→20:18)
[2019-07-24 09:01] LABS: African American GFR (CKD) >90 (>60 ml/min/1.73 sqM); Non-African American GFR(CKD) >90 (>60 ml/min/1.73 sqM)
--- NOTE | 2019-07-24 10:25 | CT ---
EXAMINATION TYPE: CT abdomen pelvis w con DATE OF EXAM: 07/24/2019 COMPARISON: None INDICATION: Right lower quadrant pain, abscess, diarrhea DLP: 752.1 mGycm, Automated exposure control for dose reduction was used. CONTRAST: 100 mL of Isovue 300. Study performed with Oral Contrast TECHNIQUE: Axial images were obtained from above the diaphragm to the pubic rami in the axial plane a t 5 mm thick sections. Reconstructed images are reviewed on the computer in the coronal plane. FINDINGS: Limited CT sections are obtained the lung bases. Minimal streak atelectasis within the lingula.. CT ABDOMEN: Liver: There is mild to moderate fatty infiltration liver. No discrete masses or cysts are evident. Spleen: Normal Pancreas: Normal Adrenal glands: The adrenal glands are normal. Gallbladder: Normal Kidneys: No masses are evident. No hydronephrosis is present. No cysts are present. Delayed images were obtained through the kidneys, which remain unremarkable. Aorta: Vascular calcification is within the aorta. Inferior vena cava: Normal. CT PELVIS: Loops of bowel within the abdomen and pelvis are normal. There are loops of bowel which are incom pletely distended or lack oral contrast limiting their evaluation. Appendix: There appears to be the appendix is Normal as visualized. Urinary bladder: Normal. Genitourinary structures: Uterus and ovaries are not identified. Osseous structures: No suspicious lytic or sclerotic lesions. IMPRESSIONS: 1. No suspicious collection to suggest abscess in the right lower quadrant. Contrast filled tubular structure appears to be the appendix. There are some diverticular changes within the colon. No acute diverticulitis is evident.
--- NOTE | 2019-07-24 11:33 | P.PN ---
Subjective Progress Note Date: 07/24/19 CHIEF COMPLAINT: Abdominal wall abscess HISTORY OF PRESENT ILLNESS: Patient seen and examined this morning at the bedside. She reports her pain is tolerable to her abdominal wall abscess. She reports increased drainage overnight from site. CT completed this morning without evidence of abscess. PHYSICAL EXAM: VITAL SIGNS: Reviewed. GENERAL: Well-developed in no acute distress. HEENT: No sclera icterus. Extraocular movements grossly intact. Moist buccal mucosa. Head is atraumatic, normocephalic. ABDOMEN: Soft. Nondistended. Nontender. Open draining abscess to right lower quadrant. NEUROLOGIC: Alert and oriented. Cranial nerves II through XII grossly intact. ASSESSMENT: 1. Right lower quadrant abdominal wall abscess PLAN: Continue antibiotics per infectious disease Continue local wound care Will re-evaluate wound tomorrow. Possible bedside I&D tomorrow by Dr. Harper Nurse practitioner note has been reviewed by physician. Signing provider agrees with the documented findings, assessment, and plan of care. Objective - Vital Signs Vital signs: Vital Signs Temp 97.7 F 07/24/19 06:17 Pulse 90 07/24/19 06:17 Resp 18 07/24/19 08:00 BP 153/78 07/24/19 06:17 Pulse Ox 91 L 07/24/19 06:17 Intake & Output 07/23/19 07/24/19 07/24/19 18:59 06:59 18:59 Intake Total 200 Balance 200 Intake: Oral 200 Other: Voiding Method Toilet Toilet # Voids 2 1 1 - Labs CBC & Chem 7: 07/23/19 08:57 07/24/19 08:31 Labs: Microbiology - Last 24 Hours (Table) 07/21/19 12:18 Blood Culture - Preliminary Blood No Growth after 48 hours 07/21/19 11:59 Gram Stain - Final Abdomen Wound Culture - Final 07/21/19 11:59 Blood Culture - Preliminary Blood No Growth after 48 hours
[2019-07-24] MEDS: Acetaminophen-Codeine 300-30mg TAB PO PRN ×2 (12:17→20:15)
[2019-07-24] MEDS ORDERED: VANCOMYCIN TROUGH DUE 1 EACH MISC MISCELLANE ONE (13:00)
--- NOTE | 2019-07-24 22:39 | P.PN ---
Subjective Progress Note Date: 07/23/19 Principal diagnosis: Abdominal wall abscess Ms. Pearson is a 63-year-old female with a known history of macular degeneration, seasonal ALLERGIES, right sided hearing loss and ongoing nicotine addiction came to ER with the complaints of right-sided abdominal wound infection. Patient says that she's been having redness, developed due to rubbing of skin with her pants about 2 weeks ago and since then the redness is getting worse. Patient was seen by her primary care physician and was started on antibiotics in the form of Bactrim and also mupirocin ointment about a week ago. Upon follow-up with her primary care physician, noted to have worsening abdominal wound and possible fluid collection/abscess. Patient was sent to ER for further evaluation.Due to patient's multiple drug allergies she has been started on vancomycin and general surgery consult was obtained. On 07/23/2019 - Patient is sitting up in a chair by the bedside and states that she still has been draining a lot of pus from the wound. She thinks the size has decreased from yesterday. Patient denies having any fevers chills or rigors. No chest pain or palpitations. No cough or difficulty in breathing. She is being continued on antibiotics as per ID recommendations. She was james luated by surgery and they are advised to continue with local wound care for now. Objective - Vital Signs Vital signs: Vital Signs Temp 98.2 F 07/23/19 15:00 Pulse 80 07/23/19 15:00 Resp 16 07/23/19 15:00 BP 171/73 07/23/19 15:00 Pulse Ox 96 07/23/19 15:00 Intake & Output 07/22/19 07/23/19 07/23/19 18:59 06:59 18:59 Intake Total 400 350 200 Balance 400 350 200 Intake: Oral 400 350 200 Other: Voiding Method Toilet Toilet Toilet # Voids 2 2 2 - Exam GEN. APPEARANCE: alert, in no apparent distress HEENT : No pallor, no icterus, No JVD RESPIRATORY EXAM: normal lung sounds bilaterally. Absent: respiratory distress, wheezes, rales, rhonchi, stridor CARDIOVASCULAR EXAM: regular rate, normal rhythm, normal heart sounds. Absent: systolic murmur, diastolic murmur, rubs, gallop, clicks GI/ABDOMINAL EXAM: soft, normal bowel sounds. Right lower abdominal wall abscess , + tenderness with surrounding redness. Pus draining from open wound. EXTREMITIES EXAM: No edema NEUROLOGICAL EXAM: alert, oriented X3,no focal deficits - Labs CBC & Chem 7: 07/23/19 08:57 07/24/19 08:31 Labs: Abnormal Lab Results - Last 24 Hours (Table) 07/23/19 Range/Units 08:57 Glucose 104 H (74-99) mg/dL Microbiology - Last 24 Hours (Table) 07/21/19 12:18 Blood Culture - Preliminary Blood No Growth after 48 hours 07/21/19 11:59 Gram Stain - Final Abdomen Wound Culture - Final 07/21/19 11:59 Blood Culture - Preliminary Blood No Growth after 48 hours Assessment and Plan Assessment: Assessment: Right-sided abdominal abscess with surrounding cellulitis. Failed outpatient therapy with Bactrim. Multiple antibiotic ALLERGIES Right-sided hearing difficulty Currently daily smoker Macular degeneration Seasonal ALLERGIES DVT prophylaxis Plan: Patient be continued on antibiotics in the form of vancomycin and Ceftriaxone. Gentle hydration. Gen. surgery on board for possible I&D. Follow up wound culture reports. Further recommendations based on the clinical course.
[2019-07-24 23:01] VITALS: RESP 18; TEMP 98.3
--- NOTE | 2019-07-24 23:43 | P.PN ---
Subjective Progress Note Date: 07/24/19 Principal diagnosis: Abdominal wall abscess Ms. Pearson is a 63-year-old female with a known history of macular degeneration, seasonal ALLERGIES, right sided hearing loss and ongoing nicotine addiction came to ER with the complaints of right-sided abdominal wound infection. Patient says that she's been having redness, developed due to rubbing of skin with her pants about 2 weeks ago and since then the redness is getting worse. Patient was seen by her primary care physician and was started on antibiotics in the form of Bactrim and also mupirocin ointment about a week ago. Upon follow-up with her primary care physician, noted to have worsening abdominal wound and possible fluid collection/abscess. Patient was sent to ER for further evaluation.Due to patient's multiple drug allergies she has been started on vancomycin and general surgery consult was obtained. On 07/23/2019 - Patient is sitting up in a chair by the bedside and states that she still has been draining a lot of pus from the wound. She thinks the size has decreased from yesterday. Patient denies having any fevers chills or rigors. No chest pain or palpitations. No cough or difficulty in breathing. She is being continued on antibiotics as per ID recommendations. She was eval uated by surgery and they are advised to continue with local wound care for now. On 07/24/2019 -patient is sitting up in a chair by the bedside. She still has a lot of drainage coming in from the abdominal wall abscess. She became tearful today and wants to go home. Patient denies having any fevers chills or rigors. She got a CAT scan of the abdomen and pelvis this morning -no suspicious collection to suggest abscess in the right lower quadrant. Contrast-filled tubular structure appears to be the appendix. Some diverticular changes within the colon but no acute diverticulitis. Objective - Vital Signs Vital signs: Vital Signs Temp 98.0 F 07/24/19 14:50 Pulse 77 07/24/19 14:50 Resp 16 07/24/19 16:00 BP 147/75 07/24/19 14:50 Pulse Ox 97 07/24/19 14:50 Intake & Output 07/24/19 07/24/19 07/25/19 06:59 18:59 06:59 Other: Voiding Method Toilet # Voids 1 3 - Exam GEN. APPEARANCE: alert, in no apparent distress HEENT : No pallor, no icterus, No JVD RESPIRATORY EXAM: normal lung sounds bilaterally. Absent: respiratory distress, wheezes, rales, rhonchi, stridor CARDIOVASCULAR EXAM: regular rate, normal rhythm, normal heart sounds. Absent: systolic murmur, diastolic murmur, rubs, gallop, clicks GI/ABDOMINAL EXAM: soft, normal bowel sounds. Right lower abdominal wall abscess with Pus draining from open wound. Less induration of the surrounding area compared to yesterday. EXTREMITIES EXAM: No edema NEUROLOGICAL EXAM: alert, oriented X3,no focal deficits - Labs CBC & Chem 7: 07/23/19 08:57 07/24/19 08:31 Labs: Microbiology - Last 24 Hours (Table) 07/24/19 11:20 Wound Culture - Preliminary Abdomen 07/21/19 12:18 Blood Culture - Preliminary Blood No Growth after 72 hours 07/21/19 11:59 Blood Culture - Preliminary Blood No Growth after 72 hours Assessment and Plan Assessment: Assessment: Right-sided abdominal abscess with surrounding cellulitis. Failed outpatient therapy with Bactrim. Multiple antibiotic ALLERGIES Right-sided hearing difficulty Currently daily smoker Macular degeneration Seasonal ALLERGIES DVT prophylaxis Plan: Patient be continued on antibiotics in the form of vancomycin and Ceftriaxone. Gen. surgery on board for possible I&D tomorrow . Follow up wound culture reports. ID Dr. Soriano on board. Further recommendations based on the clinical course.
[2019-07-25] MEDS: HEPARIN SODIUM,PORCINE 5,000 UNIT/ML 1 ML VIAL SQ SCH ×2 (00:17→07:22)
[2019-07-25] MEDS: VANCOMYCIN 1,250 MG in SODIUM CHLORIDE 0.9% 250 ML IVPB SCH ×2 (01:29→14:35)
[2019-07-25 06:22] VITALS: BP 154/80; PULSE 85
--- NOTE | 2019-07-25 06:41 | PN ---
PROGRESS NOTE DATE OF SERVICE: 07/24/2019 REASON FOR FOLLOWUP: Right lower abdominal wall abscess and cellulitis. INTERVAL HISTORY: The patient is currently afebrile. Patient Continues to complain of pain to the right lower abdominal area. The patient denies having any chest pain or shortness of breath or cough. No nausea, no vomiting, no diarrhea. PHYSICAL EXAMINATION: Blood pressure is 147/75 with a pulse of 77, temperature 98. She is 97% on room air. General description is a middle-aged female lying in bed in no distress. RESPIRATORY SYSTEM: Unlabored breathing, clear to auscultation anteriorly. HEART: S1, S2. Regular rate and rhythm. ABDOMEN: Soft, right lower abdominal wall area still has significant inflammatory changes. LABS: The CT was reviewed with radiologist did show evidence of right lower abdominal wall abscess. DIAGNOSTIC IMPRESSION AND PLAN: Patient with right abdominal abscess. The patient benefiting from surgical debridement of the same and deep cultures. Cover with Rocephin and vancomycin. Adjust antibiotics further on basis of deep cultures. Continue supportive care. MMODL / IJN: [id number] /
[2019-07-25] MEDS: NICOTINE 21MG/24HR PATCH TRANSDERM SCH (08:08)
[2019-07-25] MEDS: ASCORBIC ACID 500 MG TAB PO SCH (09:24)
[2019-07-25] MEDS: VIT A,C & E-LUTEIN-MINERALS 1 EACH TAB PO SCH (09:25)
[2019-07-25] MEDS: MULTIVITAMINS, THERA 1 EACH TAB PO SCH (09:25)
[2019-07-25] MEDS: CALCIUM CARBONATE 500 MG CHEWABLE PO SCH (09:25)
[2019-07-25 10:40] LABS: Basophils # (A) 0.1 k/uL (0-0.2); Basophils % (A) 1 %; Eosinophils # (A) 0.2 k/uL (0-0.7); Eosinophils % (A) 3 %; HCT 42.4 % (34.0-46.0); HGB 13.8 gm/dL (11.4-16.0); Lymphocytes # (A) 1.4 k/uL (1.0-4.8); Lymphocytes % (A) 19 %; MCH 30.1 pg (25.0-35.0); MCHC 32.6 g/dL (31.0-37.0); MCV 92.3 fL (80.0-100.0); Monocytes # (A) 0.4 k/uL (0-1.0); Monocytes % (A) 5 %; Neutrophils # (A) 4.9 k/uL (1.3-7.7); Neutrophils % (A) 69 %; Platelet Count 255 k/uL (150-450); RBC 4.59 m/uL (3.80-5.40); RDW 12.8 % (11.5-15.5); WBC 7.1 k/uL (3.8-10.6)
[2019-07-25 10:46] LABS: African American GFR (CKD) >90 (>60 ml/min/1.73 sqM); Anion Gap 4 mmol/L; Blood Urea Nitrogen 9 mg/dL (7-17); Calcium 9.4 mg/dL (8.4-10.2); Carbon Dioxide 32 mmol/L (22-30); Chloride 104 mmol/L (98-107); Glucose 105 mg/dL (74-99); Non-African American GFR(CKD) >90 (>60 ml/min/1.73 sqM); Sodium 140 mmol/L (137-145)
[2019-07-25 10:47] LABS: Potassium 4.1 mmol/L (3.5-5.1)
[2019-07-25] MEDS ORDERED: HYDROmorphone 1 MG/ML 1 ML SYRINGE IVP STA (12:12)
[2019-07-25] MEDS ORDERED: LORazepam 2 MG/ML INJ IV STA (12:12)
--- NOTE | 2019-07-25 12:57 | P.PN ---
Subjective Progress Note Date: 07/25/19 CHIEF COMPLAINT: Abdominal wall abscess HISTORY OF PRESENT ILLNESS: Patient examined at the bedside with Dr. Harper. She reports discomfort to right lower quadrant. Vital signs stable. PHYSICAL EXAM: VITAL SIGNS: Reviewed. GENERAL: Well-developed in no acute distress. HEENT: No sclera icterus. Extraocular movements grossly intact. Moist buccal mucosa. Head is atraumatic, normocephalic. ABDOMEN: Soft. Nondistended. Nontender. Open wound to right lower quadrant. NEUROLOGIC: Alert and oriented. Cranial nerves II through XII grossly intact. ASSESSMENT: 1. Right lower quadrant sebaceous cyst PLAN: Dr. Harper performed bedside I&D of sebaceous cyst Stable for discharge home today from a surgical standpoint Patient to follow up with Dr. Harper outpatient Nurse practitioner note has been reviewed by physician. Signing provider agrees with the documented findings, assessment, and plan of care. Objective - Vital Signs Vital signs: Vital Signs Temp 98.3 F 07/25/19 05:00 Pulse 85 07/25/19 05:00 Resp 18 07/25/19 05:00 BP 154/80 07/25/19 05:00 Pulse Ox 92 L 07/25/19 05:00 Intake & Output 07/24/19 07/25/19 07/25/19 18:59 06:59 18:59 Intake Total 0 Balance 0 Intake: Oral 0 Other: Voiding Method Toilet # Voids 3 2 - Labs CBC & Chem 7: 07/25/19 09:39 07/25/19 09:39 Labs: Abnormal Lab Results - Last 24 Hours (Table) 07/25/19 Range/Units 09:39 Carbon Dioxide 32 H (22-30) mmol/L Glucose 105 H (74-99) mg/dL Microbiology - Last 24 Hours (Table) 07/24/19 11:20 Gram Stain - Preliminary Abdomen Wound Culture - Preliminary 07/21/19 12:18 Blood Culture - Preliminary Blood No Growth after 72 hours 07/21/19 11:59 Blood Culture - Preliminary Blood No Growth after 72 hours
[2019-07-25] MEDS: SODIUM CHLORIDE 0.9% 1,000 ML IV SCH (12:58)
--- NOTE | 2019-07-25 14:20 | PN ---
PROGRESS NOTE DATE OF SERVICE: 07/25/2019 REASON FOR FOLLOWUP: Right abdominal wall cellulitis/abscess. INTERVAL HISTORY: Patient is currently afebrile. The patient did have bedside debridement of the right lower abdominal lesion, looks like a sebaceous cyst. No purulent was noticed. The patient denies having any chest pain, shortness of breath or cough and has tolerated the procedure. No vomiting or diarrhea. PHYSICAL EXAMINATION: Blood pressure is 154/80 with a pulse of 85, temperature 98.3, she is 92% on room air. General description is a middle-aged female, lying in bed in no distress. RESPIRATORY SYSTEM: Unlabored breathing, clear to auscultation anteriorly. HEART: S1, S2. Regular rate and rhythm. ABDOMEN: Soft. Wound is currently covered. EXTREMITIES: No edema of the feet. LABS: Culture remains to be negative. White count normal. DIAGNOSTIC IMPRESSION AND PLAN: Patient with right lower abdominal wall sebaceous cyst with concern for possible cellulitis. The patient is currently covered with vancomycin and Rocephin which will be switched over to Keflex 500 mg t.i.d. for about a week and close outpatient followup. Continue supportive care. MMODL / IJN: [id number] /
== END 2019-07-25 15:18 | disposition home or self-care (01) ==
LOC: EC 10:56 → UNDOADMOB 13:09 → OBSVTOIN 13:09 → 6NMEDSUR 13:09 → INTOOBSV 13:09 → 6NMEDSUR 14:19 → UNDODISIN 07-25 15:18
PROVIDERS: ADMIT Internal Medicine; ATTEND Internal Medicine
DX: L03.311 Cellulitis of abdominal wall (principal); L02.211 Cutaneous abscess of abdominal wall; H35.30 Unspecified macular degeneration; F17.210 Nicotine dependence, cigarettes, uncomplicated; H91.91 Unspecified hearing loss, right ear; J30.2 Other seasonal allergic rhinitis; L72.3 Sebaceous cyst; Z82.49 Family history of ischemic heart disease and other diseases of the circulatory system; Z88.1 Allergy status to other antibiotic agents; Z90.710 Acquired absence of both cervix and uterus; Z88.0 Allergy status to penicillin; Z91.040 Latex allergy status
CPT/HCPCS: 96361 ×4; 96365; 96366 ×5; 96367; 96375; 96368; 96376; 99285; 36415; 80053; 80048 ×2; 82565; 83605; 85025 ×4; 80202; 85610; 85730; 87040; 87070 ×3; 87205 ×3; 87075; 74177; G0378 ×5; S4990 ×5; J3370 ×5; J2060; J0696 ×5; J1170; Q9967; 96374

== ENCOUNTER → 2019-08-10 | Outpatient (CLI) | payer BC ==
--- NOTE | 2019-08-11 13:38 | MM ---
Reason for exam: screening (asymptomatic). Last mammogram was performed 1 year and 4 months ago. History: Patient is postmenopausal. Family history of breast cancer in aunt and breast cancer in sister at age 62. Benign US biopsy breast VAD RT of the right breast, April 14, 2017. Took hormonal contraceptives for 3 months beginning at age 19. Took estrogen beginning at age 52. Taking progesterone beginning at age 47. Taking other hormone beginning at age 47. Physical Findings: A clinical breast exam by your physician is recommended on an annual basis and results should be correlated with mammographic findings. MG Screening Mammo w CAD Bilateral CC and MLO view(s) were taken. Prior study comparison: April 04, 2018, bilateral MG 3d screening mammo w/cad. April 14, 2017, right breast MG diagnostic mammo RT wo CAD. The breast tissue is heterogeneously dense. This may lower the sensitivity of mammography. Previous mammotome biopsy in the right breast. No significant changes when compared with prior studies. ASSESSMENT: Benign, BI-RAD 2 RECOMMENDATION: Routine screening mammogram of both breasts in 1 year.
== END | disposition home or self-care (01) ==
LOC: RADMAMWWP 13:51
PROVIDERS: ATTEND Internal Medicine
DX: Z12.31 Encounter for screening mammogram for malignant neoplasm of breast (principal)
CPT/HCPCS: 77067

== ENCOUNTER → 2020-04-26 | Outpatient (CLI) | payer MEDICARE, BC ==
--- NOTE | 2020-04-26 11:03 | MR ---
EXAMINATION TYPE: MR cervical spine wo con DATE OF EXAM: 04/26/2020 COMPARISON: None HISTORY: Pain and numbness left side of neck, arm, and hand x 3 months TECHNIQUE: Multiplanar, multisequence images of the cervical spine were acquired. C2-C3: Facet arthropathy in the left with mild left-sided foraminal encroachment. No disc herniation, canal stenosis or foraminal encroachment. C3-C4: Facet arthropathy greater on the left with moderate left-sided foraminal encroachment. No disc herniation or canal stenosis. Mild degenerative disc disease. C4-C5: Severe degenerative disc disease with bilateral uncovertebral joint hypertrophy. Disc bulging capped by spur compatible with disc osteophyte complex results in mild anterior compression upon the spinal cord and canal stenosis. Moderate to severe bilateral foraminal encroachment. C5-C6: Degenerative disc disease with uncovertebral joint hypertrophy. Moderate to severe bilateral f oraminal encroachment greater on the left. No focal herniation or canal stenosis. C6-C7: Severe degenerative disc disease with bilateral uncovertebral joint hypertrophy. Mild right an d moderate left foraminal encroachment. No disc herniation or canal stenosis. C7-T1: No disc herniation or canal stenosis. No foraminal encroachment Cervical segments are intact. There is normal alignment. Cervical spinal cord is of normal signal. Cerebellar tonsils are low-lying in position at the level the foramen magnum. There are sagittal disc bulging involving the upper thoracic spine which be correlated clinically IMPRESSION: 1. Multilevel degenerative disc disease with severe changes at C4-5, C5-6 and C6-C7. Most marked find ings seen in C4-C5 with posterior disc osteophyte complex resulting in anterior mild impression upon the spinal cord, canal stenosis and severe bilateral foraminal encroachment. 2. Multilevel facet arthropathy, uncovertebral joint hypertrophy, and foraminal encroachment as discu ssed above
--- NOTE | 2020-04-26 11:06 | MR ---
EXAMINATION TYPE: MR shoulder LT wo con DATE OF EXAM: 04/26/2020 COMPARISON: None HISTORY: Pain and numbness left side of neck, arm, and hand x 3 months TECHNIQUE: Multiplanar, multisequence imaging of the left shoulder is performed without contrast. FINDINGS: There is hypertrophic changes involving the AC joint results in mild impression upon the supraspinatu s tendon and muscle compatible with impingement. Bicipital tendon is well situated bicipital groove. Biceps anchor is intact. Visualized glenohumeral ligaments have a normal appearance. The bony labrum are within normal limits for non arthrogram technique. Subscapularis demonstrates mild increased signal insertion compatible with tendinosis. Infraspinatus tendon is intact and no evidence of significant abnormal signal. There is a small amount of fluid in the subacromial bursa. There is fraying along the bursal surface of the supraspinatus tendon compatible with tendinosis and bursal surface fraying no through thicknes s tear or retraction. IMPRESSION: 1. Small amount of fluid in the subacromial bursa with evidence of bursal surface fraying involving t he supraspinatus tendon but no evidence of through thickness tear or retraction. 2. Abnormal signal at the insertion of the subscapularis compatible with tendinosis and partial intra substance tear. 3. Impingement secondary to AC joint arthropathy.
== END | disposition home or self-care (01) ==
LOC: RADMRIMAIN 08:50
PROVIDERS: ATTEND Internal Medicine
DX: M48.02 Spinal stenosis, cervical region (principal); M50.321 Other cervical disc degeneration at C4-C5 level; M47.812 Spondylosis without myelopathy or radiculopathy, cervical region; M89.38 Hypertrophy of bone, other site; M75.42 Impingement syndrome of left shoulder; M12.812 Other specific arthropathies, not elsewhere classified, left shoulder; M71.812 Other specified bursopathies, left shoulder; R93.7 Abnormal findings on diagnostic imaging of other parts of musculoskeletal system
CPT/HCPCS: 72141

== ENCOUNTER → 2020-05-16 | Outpatient (CLI) | payer MEDICARE, BC ==
--- NOTE | 2020-05-16 10:04 | MM ---
Reason for exam: clinical finding. Last mammogram was performed 9 months ago. History: Patient is postmenopausal. Family history of breast cancer in aunt and breast cancer in sister at age 62. Benign US biopsy breast VAD RT of the right breast, April 14, 2017. Took hormonal contraceptives for 3 months beginning at age 19. Took estrogen beginning at age 52. Taking progesterone beginning at age 47. Taking other hormone beginning at age 47. Physical Findings: Nurse did not find any significant physical abnormalities on exam. MG 3D Diag Mammo W/Cad DANICA Bilateral CC and MLO view(s) were taken. LM and spot compression MLO view(s) were taken of the right breast. Prior study comparison: August 10, 2019, bilateral MG screening mammo w CAD. April 04, 2018, bilateral MG 3d screening mammo w/cad. The breast tissue is heterogeneously dense. This may lower the sensitivity of mammography. Previous mammotome biopsy in the right breast. There is chronic nodularity in the right breast posterior and medial position CC view. Anterior asymmetric density right MLO view disperses on spot 3D. No significant new findings when compared with previous films. These results were verbally communicated with the patient and result sheet given to the patient on 05/16/20. ASSESSMENT: Benign, BI-RAD 2 RECOMMENDATION: Routine screening mammogram of both breasts in 1 year. Manage on a clinical basis with regard to lateral left breast pain.
== END | disposition home or self-care (01) ==
LOC: RADMAMWWP 08:07
PROVIDERS: ATTEND Internal Medicine
DX: N64.4 Mastodynia (principal)
CPT/HCPCS: 77066; G0279; 77062

== ENCOUNTER 2020-09-28 10:41 | Emergency (ER) | payer MEDICARE, BC ==
[2020-09-28 10:47] VITALS: RESP 18; TEMP 98.2
[2020-09-28] MEDS ORDERED: predniSONE 20 MG TAB PO STA (11:15)
[2020-09-28] MEDS ORDERED: valACYclovir 500 MG TAB PO SCH (11:15)
--- NOTE | 2020-09-28 11:19 | ED ---
General Adult HPI - General Chief complaint: Neuro Symptoms/Deficit Stated complaint: Facial droop right side Time Seen by Provider: 09/28/20 10:48 Source: patient, RN notes reviewed, old records reviewed Mode of arrival: ambulatory Limitations: no limitations - History of Present Illness Initial comments: 64-year-old female presenting with complaint of right ear pain over the past one week and right facial droop that was noticed this morning at 6 AM. She is presenting for evaluation at 11 AM. She noted that she had a hard time closing her right eye and had spilled coffee out of the right side of her mouth. Her also noticed a facial droop and she is presenting to the emergency department for evaluation. She denies headache. Denies fever or chills. She states she's had pain around her right ear for the past 3 days. She denies rash. She denies limb weakness. She denies gait instability. - Related Data Home Medications Medication Instructions Recorded Confirmed Ascorbic Acid [Vitamin C] 500 mg PO DAILY 07/21/19 07/21/19 Calcium Carbonate [Calcium] 600 mg PO DAILY 07/21/19 07/21/19 Multivitamins, Thera [Multivitamin 1 tab PO DAILY 07/21/19 07/21/19 (formulary)] Cholecalciferol [Vitamin D3 (25 25 mcg PO DAILY 09/28/20 09/28/20 Mcg = 1000 Iu)] Previous Rx's Medication Instructions Recorded predniSONE [Deltasone] 60 mg PO DAILY 7 Days #21 tab 09/28/20 valACYclovir [Valtrex] 1,000 mg PO TID 7 Days #28 tab 09/28/20 Allergies Allergy/AdvReac Type Severity Reaction Status Date / Time ciprofloxacin Allergy Swelling Verified 07/21/19 14:30 Latex, Natural Rubber Allergy Rash/Hives Verified 07/21/19 14:30 levofloxacin Allergy Anaphylaxis Verified 07/21/19 14:30 ofloxacin Allergy Swelling Verified 07/21/19 14:30 Penicillins Allergy Swelling Verified 07/21/19 14:30 Quinolones Allergy Swelling Verified 07/21/19 14:30 Review of Systems ROS Statement: Those systems with pertinent positive or pertinent negative responses have been documented in the HPI. ROS Other: All systems not noted in ROS Statement are negative. Past Medical History Additional Past Medical History / Comment(s): macular degeneration, seasonal allergies History of Any Multi-Drug Resistant Organisms: None Reported Past Surgical History: Ear Surgery, Hysterectomy Additional Past Surgical History / Comment(s): mastiodectomy left ear Additional Past Anesthesia/Blood Transfusion Reaction / Comment(s): hallucinates after anesthesia Past Psychological History: No Psychological Hx Reported Smoking Status: Current every day smoker Past Alcohol Use History: Occasional, Rare Past Drug Use History: None Reported - Past Family History Sister(s) Family Medical History: Cancer Father Family Medical History: Congestive Heart Failure (CHF) General Exam Limitations: no limitations General appearance: alert, in no apparent distress Head exam: Present: atraumatic, normocephalic Eye exam: Present: normal appearance, other (Patient is unable to fully close the right eye against resistance) ENT exam: Present: other (No mastoid tenderness or erythema. No visualized rash. The visualized portion of the right eardrum is erythematous, nonbulging. There is cerumen impaction ) Neck exam: Present: normal inspection. Absent: tenderness, meningismus Respiratory exam: Present: normal lung sounds bilaterally. Absent: respiratory distress, wheezes Cardiovascular Exam: Present: regular rate, normal rhythm GI/Abdominal exam: Present: soft. Absent: distended, tenderness, guarding Extremities exam: Present: normal inspection, normal capillary refill. Absent: pedal edema, calf tenderness Neurological exam: Present: alert, CN II-XII intact (Right facial droop, this involves both forehead and lower face.), other (No limb weakness or ataxia.) Psychiatric exam: Present: normal affect, normal mood Skin exam: Present: warm, dry, intact. Absent: cyanosis, diaphoretic Course Vital Signs 09/28/20 10:43 Temperature 98.2 F Pulse Rate 88 Respiratory 18 Rate Blood Pressure 126/78 O2 Sat by Pulse 96 Oximetry Medical Decision Making - Medical Decision Making 64-year-old female presenting with 4 days of right ear pain and the development of facial weakness. She does have involvement of both the upper and lower face. She is unable to close her right eye. I did perform a CT which is negative for intracranial hemorrhage or mass effect. Patient has stable vital signs. She has no other limb weakness or ataxia. No slurred speech. She's given prednisone and azithromycin. She does have a follow-up appointment with ENT for chronic cerumen impaction on Wednesday which is 2 days from now. She's given strict return parameters regarding development of new or worsening symptoms. Disposition Clinical Impression: Vaughan's palsy Disposition: HOME SELF-CARE Condition: Good Instructions (If sedation given, give patient instructions): Vaughan Palsy (ED) Prescriptions: predniSONE [Deltasone] 60 mg PO DAILY 7 Days #21 tab valACYclovir [Valtrex] 1,000 mg PO TID 7 Days #28 tab Is patient prescribed a controlled substance at d/c from ED?: No Referrals: Laura Ga MD [Primary Care Provider] - 1-2 days Yvon Smith MD [STAFF PHYSICIAN] - 1-2 days Time of Disposition: 12:25
--- NOTE | 2020-09-28 11:29 | CT ---
EXAMINATION TYPE: CT brain wo con DATE OF EXAM: 09/28/2020 HISTORY: Right facial droop CT DLP: 1084.4 mGycm. Automated Exposure Control for Dose Reduction was Utilized. TECHNIQUE: CT scan of the head is performed without contrast. COMPARISON: None. FINDINGS: There is no acute intracranial hemorrhage or midline shift identified. Ventricles and sul ci within normal limits in size for patient's age. Adams-white matter differentiation fairly well main tained. Patchy cerumen deep aspect of the bilateral external auditory canals. The globes are intact and the visualized sinuses are clear. IMPRESSION: No acute intracranial hemorrhage or midline shift.
[2020-09-28 12:37] VITALS: BP 132/88; PULSE 78
== END 2020-09-28 12:36 | disposition home or self-care (01) ==
LOC: EC 10:41
DX: G51.0 Bell's palsy (principal); F17.200 Nicotine dependence, unspecified, uncomplicated; Z88.0 Allergy status to penicillin
CPT/HCPCS: 70450; 99284; J7512

== ENCOUNTER → 2021-05-23 | Outpatient (CLI) | payer MEDICARE, BC ==
--- NOTE | 2021-05-26 14:04 | MM ---
Reason for exam: screening (asymptomatic). Last mammogram was performed 1 year ago. History: Patient is postmenopausal. Family history of breast cancer in aunt and breast cancer in sister at age 62. Benign US biopsy breast VAD RT of the right breast, April 14, 2017. Took hormonal contraceptives for 3 months beginning at age 19. Took estrogen beginning at age 52. Taking progesterone beginning at age 47. Taking other hormone beginning at age 47. Physical Findings: A clinical breast exam by your physician is recommended on an annual basis and results should be correlated with mammographic findings. MG 3D Screening Mammo W/Cad Bilateral CC and MLO view(s) were taken. Prior study comparison: May 16, 2020, bilateral MG 3d diag mammo w/cad DANICA. August 10, 2019, bilateral MG screening mammo w CAD. Finding: There are diffuse/scattered, fine calcifications in the left breast. No suspicious groups of calcifications. ASSESSMENT: Benign, BI-RAD 2 RECOMMENDATION: Routine screening mammogram of both breasts in 1 year.
== END | disposition home or self-care (01) ==
LOC: RADMAMWWP 10:13
PROVIDERS: ATTEND Internal Medicine
DX: Z12.31 Encounter for screening mammogram for malignant neoplasm of breast (principal); R92.1 Mammographic calcification found on diagnostic imaging of breast; Z80.3 Family history of malignant neoplasm of breast; Z78.0 Asymptomatic menopausal state
CPT/HCPCS: 77063; 77067

== ENCOUNTER → 2021-09-24 | Outpatient (CLI) | payer MEDICARE, BC ==
--- NOTE | 2021-09-24 12:50 | XR ---
EXAMINATION TYPE: XR thoracic spine complete DATE OF EXAM: 09/24/2021 COMPARISON: None HISTORY: Right shoulder pain and back pain TECHNIQUE: 3 view thoracic spine FINDINGS: Minimal spondylosis is present. Vertebral body heights are preserved. Disc heights are pres erved. There are 12 thoracic type vertebral bodies. The pedicles are intact. IMPRESSION: 1. Minimal degenerative change within the thoracic spine.
--- NOTE | 2021-09-24 12:56 | XR ---
EXAMINATION TYPE: XR shoulder complete RT DATE OF EXAM: 09/24/2021 COMPARISON: NONE HISTORY: Pain TECHNIQUE: Shoulder examined in 2 views FINDINGS: The humeral head articulates with the glenoid. The acromio-clavicular junction is normal. No acute fractures or dislocations are evident. A follow up study can be performed 7-10 days from acute trauma for continued pain. IMPRESSION: 1. Normal 2 view right Shoulder
== END | disposition home or self-care (01) ==
LOC: RADXRMAIN 11:27
PROVIDERS: ATTEND Internal Medicine
DX: M47.814 Spondylosis without myelopathy or radiculopathy, thoracic region (principal); M25.511 Pain in right shoulder
CPT/HCPCS: 72072

== ENCOUNTER → 2021-10-02 | Outpatient (CLI) | payer MEDICARE, BC ==
--- NOTE | 2021-10-02 15:42 | CT ---
EXAMINATION TYPE: CT sinus wo con DATE OF EXAM: 10/02/2021 COMPARISON: CT dated 09/28/2020 HISTORY: chronic sinuitis CT DLP: 648 mGycm. Automated Exposure Control for Dose Reduction was Utilized. TECHNIQUE: CT scan of the sinuses is performed without contrast, axial images are obtained, coronal r eformatted images are also reviewed. FINDINGS: Deviated bony nasal septum convex to the right side with a bony spur. Pneumatized left vertical lamel la. Slight remodeling of the right middle and right inferior turbinates secondary to the bony nasal s eptal deviation. Unremarkable middle and inferior turbinates otherwise. No significant mucosal thicke farhan of the nasal fossa bilaterally. Patent infundibulum and middle meatus bilaterally. Minimal mucosal thickening of the alveolar recess of the right maxillary sinus, otherwise unremarkable maxillary sinuses. Unremarkable frontal sinus, e thmoid air cells and sphenoid sinus. Clear sphenoethmoidal recesses. Hypopneumatized mastoid air cells with sclerotic changes suggestive of chronic mastoiditis, please co rrelate clinically. Questionable deformity of the left middle ear ossicles, suboptimally assessed by this CT scan. Unremarkable visualized portion of the brain and orbits. IMPRESSION: Minimal mucosal thickening of the right maxillary sinus, otherwise clear paranasal sinuses. Hypopneumatized mastoid air cells with sclerotic changes, please correlate clinically for chronic mas toiditis. Suspected deformity of the left middle ear ossicles, suboptimally assessed by this CT scan. Other fin dings as described above.
== END | disposition home or self-care (01) ==
LOC: RADCTMAIN 14:18
PROVIDERS: ATTEND Otolaryngology
DX: J34.89 Other specified disorders of nose and nasal sinuses (principal); H74.8X9 Other specified disorders of middle ear and mastoid, unspecified ear
CPT/HCPCS: 70486

== ENCOUNTER → 2022-06-03 | Outpatient (CLI) | payer MEDICARE, BC ==
--- NOTE | 2022-06-04 18:44 | MM ---
Reason for Exam: Screening (asymptomatic). Last screening mammogram was performed 12 month(s) ago. Patient History: Menarche at age 9. First Full-Term at age 18. Left ovary removed at age 47. Right ovary removed at age 47. Hysterectomy at age 47. Postmenopausal. Estrogen, starting at age 52. Progesterone, starting at age 47. Hormonal Contraceptives for 3 months starting at age 19. 04/14/2017, Benign Core Biopsy on the right side. Maternal aunt had breast cancer. Sister (Cinthia) had breast cancer, age 62. Sister (Jodie) had breast cancer, age 65. Sister (Fanny) had breast cancer, age 70. Risk Values: Flores 5 year model risk: 10.3%. NCI Lifetime model risk: 30.8%. Prior Study Comparison: 08/10/2019 Bilateral Screening Mammogram, [facility]. 05/16/2020 Bilateral Diagnostic Mammogram, [facility]. 05/23/2021 Bilateral Screening Mammogram, [facility]. Tissue Density: The breast tissue is heterogeneously dense. This may lower the sensitivity of mammography. Findings: Analyzed By CAD. A number of bilateral areas of asymmetric density remain unchanged compared to prior exams. Microclip anterior right breast from prior biopsy. No significant change from prior exams. Overall Assessment: Benign, BI-RAD 2 Management: Screening Mammogram of both breasts in 1 year. 1. Note the patient's very high Flores score and overall lifetime risk for the development of breast cancer. Consider specialist referral to assess eligibility for a risk reducing agent. In addition, the patient may qualify for future screening with alternating mammogram and breast MRI. 2. Patient should continue monthly self breast exams. A clinical breast exam by your physician is recommended on an annual basis. 3. This exam should not preclude additional follow-up of suspicious palpable abnormalities. Electronically signed and approved by: Archie Harman M.D. Radiologist
== END | disposition home or self-care (01) ==
LOC: RADMAMWWP 12:52
PROVIDERS: ATTEND Internal Medicine
DX: Z12.31 Encounter for screening mammogram for malignant neoplasm of breast (principal); Z78.0 Asymptomatic menopausal state; Z80.3 Family history of malignant neoplasm of breast; Z90.721 Acquired absence of ovaries, unilateral
CPT/HCPCS: 77063; 77067

== ENCOUNTER → 2023-06-17 | Outpatient (CLI) | payer MEDICARE, BC ==
--- NOTE | 2023-06-18 19:36 | MM ---
Reason for Exam: Screening (asymptomatic). Last mammogram was performed 1 year(s) and 1 month(s) ago. Patient History: Menarche at age 9. First Full-Term at age 18. Left ovary removed at age 47. Right ovary removed at age 47. Hysterectomy at age 47. Postmenopausal. Estrogen, starting at age 52 for 10 years. Progesterone, starting at age 47 for 10 years. Hormonal Contraceptives, starting at age 19 for 10 years. 04/14/2017, Benign Core Biopsy on the right side. Maternal aunt had breast cancer. Sister (Cinthia) had breast cancer, age 62. Sister (Jodie) had breast cancer, age 65. Sister (Fanny) had breast cancer, age 70. Risk Values: Floers 5 year model risk: 10.3%. NCI Lifetime model risk: 29.7%. Prior Study Comparison: 03/16/2017 Bilateral Screening Mammogram, [facility]. 04/14/2017 Right Diagnostic Mammogram, [facility]. 04/04/2018 Bilateral Screening Mammogram, [facility]. 08/10/2019 Bilateral Screening Mammogram, [facility]. 05/16/2020 Bilateral Diagnostic Mammogram, [facility]. 05/23/2021 Bilateral Screening Mammogram, [facility]. 06/03/2022 Bilateral MG 3D screening mammo w/cad, [facility]. Tissue Density: The breast tissue is heterogeneously dense. This may lower the sensitivity of mammography. Findings: Analyzed By CAD. Pattern appears symmetrical and stable. No significant interval changes are evident. A core marker is within the right breast. Scattered benign calcifications are present bilaterally. No suspicious groups of microcalcifications, spiculated or lobular masses, architectural distortion or other secondary signs of malignancy are mammographically apparent. Overall Assessment: Benign, BI-RAD 2 Management: Screening Mammogram of both breasts in 1 year. A negative mammogram report should not preclude additional follow up of suspicious palpable abnormalities. Patient should continue monthly self breast exam. A clinical breast exam by your physician is recommended on an annual basis and results should be correlated with mammographic findings. Electronically signed and approved by: Arvin Bullard D.O. Radiologis
== END | disposition home or self-care (01) ==
LOC: RADMAMWWP 13:24
PROVIDERS: ATTEND Internal Medicine
DX: Z12.31 Encounter for screening mammogram for malignant neoplasm of breast (principal); Z78.0 Asymptomatic menopausal state; Z80.3 Family history of malignant neoplasm of breast
CPT/HCPCS: 77063; 77067

== ENCOUNTER → 2024-05-16 | Outpatient (CLI) | payer MEDICARE, BC ==
--- NOTE | 2024-05-16 10:40 | CTL ---
EXAMINATION TYPE: CT Low Dose Lung DATE OF EXAM ORDERED: 05/16/2024 COMPARISON: No direct comparisons CLINICAL INDICATION: Female, 68 years old with history of Z12.2 Screening F17.210 CURRENT SMOKER; [facility] , personal hx of nicotine dependence 1ppd X 30 years current smoker, Lung cancer screening, History o f Smoking/tobacco use. TECHNIQUE: Low dose computed tomography scan was performed through the chest at 1 mm thick sections a nd reconstructed images in multiple planes at 1 mm and [address] DLP: 110.[address] CTDI: 3.3 mGy Automated exposure control for dose reduction was used. CT DIAGNOSTIC QUALITY: Satisfactory FINDINGS: Nodules: Lingular calcified 3.7 mm granuloma (series 6, image 32). Right upper lobe posterior 10.9 mm solid pulmonary nodule (series 6, image 14). Right lower lobe 1.8 mm pulmonary nodule (series 6, image 33). LUNGS: COPD: Severity: None Fibrosis: Severity: None Lymph nodes: None Other findings: None RIGHT PLEURAL SPACE: Effusion: None Calcification: None Thickening: None Pneumothorax: None LEFT PLEURAL SPACE: Effusion: None Calcification: None Thickening: None Pneumothorax: None HEART: Heart Size: Normal Coronary Calcification: Small Pericardial Effusion: None OTHER FINDINGS: Upper abdomen: Liver is diffusely hypoattenuating. Bony thorax: Minimal multilevel degenerative disc disease. Supraclavicular region: None Other: None IMPRESSION: 1. Couple of pulmonary nodules with largest measuring up to 10.9 mm. Further evaluation with PET/CT i s recommended. 2. Hepatic steatosis. CT LUNG RAD AND CT CHEST RECOMMENDATION: Lung-Rad 4A Suspicious: Follow-up 3 month LDCT or PET/CT may be used when there is a > 8 mm solid component. S Modifier (other clinically significant findings): None [facility], , 05/16/2024 10:38 AM
== END | disposition home or self-care (01) ==
LOC: RADCTMAIN 08:17
PROVIDERS: ATTEND Family Medicine
DX: Z12.2 Encounter for screening for malignant neoplasm of respiratory organs (principal); F17.210 Nicotine dependence, cigarettes, uncomplicated; K76.0 Fatty (change of) liver, not elsewhere classified; R91.8 Other nonspecific abnormal finding of lung field
CPT/HCPCS: 71271

== ENCOUNTER → 2024-06-23 | Outpatient (CLI) | payer MEDICARE, BC ==
--- NOTE | 2024-06-23 17:29 | PE ---
EXAMINATION TYPE: PET CT fusion skull to thigh DATE OF EXAM: 06/23/2024 CLINICAL INDICATION:Female, 68 years old with history of R91.1 SOLITARY PULMONARY NODULE; TECHNIQUE: Following the intravenous administration of 12.92 mCi of F-18 FDG, whole body images are performed from the skull base to the midthigh. Images are reviewed on the computer in the coronal, axial, and sagittal planes. Reconstructed rotating images are created on independent workstation and reviewed on the computer. A non-contrast CT is performed in conjunction with the PET scan. Glucose level 88 mg/dL CT DLP: 657.7 to mGycm, Automated exposure control for dose reduction was used. COMPARISON: CT 05/16/2024, PET/CT None, MRI: None FINDINGS: Mediastinal SUV mean is 1.9. Hepatic parenchyma SUV mean is 2.3. SKULL BASE AND NECK: No suspicious radiotracer activity. CHEST, MEDIASTINUM, AND HILAR REGION: Right upper lobe 1.1 cm pulmonary nodule without FDG activity. Demonstrates a maximum SUV of 1.1. ABDOMEN AND PELVIS: No suspicious radiotracer activity. MUSCULOSKELETAL STRUCTURES: No suspicious radiotracer activity. OTHER CT: Bilateral aphakia. Bilateral carotid bulb calcifications. Mild atherosclerotic calcificatio n of the aorta and its branches. Hepatic steatosis. Sigmoid diverticulosis. Posthysterectomy changes. Multilevel degenerative changes of the spine. Lingular calcified granuloma. IMPRESSION: Redemonstration of right upper lobe 1.1 cm pulmonary nodule without FDG activity above background. Sl ow-growing neoplasm is not excluded. Continued surveillance is recommended with follow-up CT chest in 3-6 months. No other suspicious FDG activity. [facility], , 06/23/2024 5:27 PM
== END | disposition home or self-care (01) ==
LOC: RADPETMAIN 09:43
PROVIDERS: ATTEND Internal Medicine
DX: R91.1 Solitary pulmonary nodule (principal)
CPT/HCPCS: 78815; A9552

== ENCOUNTER → 2024-08-24 | Outpatient (CLI) | payer MEDICARE, BC ==
--- NOTE | 2024-08-24 13:57 | MM ---
Reason for Exam: Screening (asymptomatic). Last mammogram was performed 1 year(s) and 2 month(s) ago. Patient History: Menarche at age 9. First Full-Term at age 18. Left ovary removed at age 47. Right ovary removed at age 47. Hysterectomy at age 47. Postmenopausal. Estrogen, starting at age 52 for 10 years. Progesterone, starting at age 47 for 10 years. Hormonal Contraceptives, starting at age 19 for 10 years. 04/14/2017, Benign Core Biopsy on the right side. Maternal aunt had breast cancer. Sister (Cinthia) had breast cancer, age 62. Sister (Jodie) had breast cancer, age 65. Sister (Fanny) had breast cancer, age 70. Risk Values: Flores 5 year model risk: 10.4%. NCI Lifetime model risk: 28.6%. Prior Study Comparison: 05/23/2021 Bilateral Screening Mammogram, [facility]. 06/03/2022 Bilateral MG 3D screening mammo w/cad, [facility]. 06/17/2023 Bilateral MG 3D screening mammo w/cad, [facility]. Tissue Density: The breasts are heterogeneously dense, which may obscure small masses. Findings: Analyzed By CAD. There is no suspicious group of microcalcifications or new suspicious mass in either breast. Overall Assessment: Negative, BI-RAD 1 Management: Screening Mammogram of both breasts in 1 year. . Patient should continue monthly self-breast exams. A clinical breast exam by your physician is recommended on an annual basis. This exam should not preclude additional follow-up of suspicious palpable abnormalities. Note on Flores scores and lifetime risk: 1. A Flores score greater than 3% is considered moderate risk. If this is the case, consider specialist referral to assess eligibility for a risk reducing agent. 2. If overall lifetime risk for the development of breast cancer is 20% or higher, the patient may qualify for future screening with alternating mammogram and breast MRI. [facility], , 08/24/2024 1:55 PM. Electronically signed and approved by: Jorje Robles M.D. Radiologis
== END | disposition home or self-care (01) ==
LOC: RADMAMWWP 12:48
PROVIDERS: ATTEND Family Medicine
DX: Z12.31 Encounter for screening mammogram for malignant neoplasm of breast (principal); R92.333 Mammographic heterogeneous density, bilateral breasts; Z78.0 Asymptomatic menopausal state; Z80.3 Family history of malignant neoplasm of breast; Z92.0 Personal history of contraception
CPT/HCPCS: 77063; 77067

== ENCOUNTER → 2024-10-17 | Outpatient (CLI) | payer MEDICARE, BC ==
[2024-10-17 11:29] LABS: African American GFR (CKD) >90 (>60 ml/min/1.73 sqM); Blood Urea Nitrogen 18 mg/dL (7-17); Non-African American GFR(CKD) 90 (>60 ml/min/1.73 sqM)
--- NOTE | 2024-10-17 14:12 | CT ---
EXAMINATION TYPE: CT chest w con CT DLP: 375.5 mGycm, Automated exposure control for dose reduction was used. DATE OF EXAM: 10/17/2024 12:25 PM COMPARISON: PET CT 06/23/2024, CT low-dose lung 05/16/2024 CLINICAL INDICATION:Female, 68 years old with history of R91.1 SOLITARY PULMONARY NODULE; [facility], nodule s TECHNIQUE: Multiple axial images were obtained through the chest following the administration of 100 cc of Isovue 300. . Coronal and sagittal reformats reviewed. FINDINGS: LUNGS/ PLEURA: No pleural effusion, pneumothorax, or focal consolidation. Minimal lingular subsegment al atelectasis. Lingular calcified granuloma measuring up to 5 mm. Stable solid posterior right upper lobe 10.8 mm pulmonary nodule (series 4, image 15). Stable right lower lobe 2 mm pulmonary nodule (s eries 4, image 35). No new or enlarging pulmonary nodules. AIRWAY: Patent and unremarkable.. HEART: Size within normal limits. No pericardial effusion. No significant coronary artery calcificati ons. MEDIASTINUM: No gross evidence of adenopathy. VASCULATURE: No aortic aneurysm. Mild atherosclerotic calcification of the aorta and its branches. 4 vessel aortic arch. MUSCULOSKELETAL: Mild disc degeneration changes are present throughout the thoracolumbar spine. No ac juan osseous abnormality. No aggressive osseous lesion. SOFT TISSUES/LYMPH NODES: Unremarkable. LOWER NECK: No significant findings. UPPER ABDOMEN: Diffuse low-attenuation to the liver parenchyma. IMPRESSION: 1. Few stable pulmonary nodules with largest in the right upper lobe measuring again 10.8 mm. No FDG activity on prior PET/CT. No new or enlarging pulmonary nodules. Recommend follow-up CT chest in one year. 2. Hepatic steatosis. [facility], , 10/17/2024 2:09 PM
== END | disposition home or self-care (01) ==
LOC: RADCTMAIN 10:46
PROVIDERS: ATTEND Internal Medicine
DX: R91.8 Other nonspecific abnormal finding of lung field (principal); K76.0 Fatty (change of) liver, not elsewhere classified
CPT/HCPCS: 82565; 84520; 71260; 36415; Q9967

== ENCOUNTER → 2024-11-22 | Outpatient (CLI) | payer MEDICARE, BC ==
--- NOTE | 2024-11-22 17:55 | MR ---
EXAMINATION TYPE: MR shoulder LT wo con DATE OF EXAM: 11/22/2024 3:56 PM COMPARISON: None. CLINICAL INDICATION: Female, 68 years old with history of M25.512 PAIN IN L SHOULDER, Left shoulder p ain x3 months IV Contrast: cc (None if empty) TECHNIQUE: Multiplanar, multisequence imaging of the left shoulder is performed without contrast. FINDINGS: Rotator Cuff: Intact supraspinatus and infraspinatus tendons. Intact subscapularis tendon. Rotator cu ff muscle bulk is preserved. Acromioclavicular Joint: Moderate narrowing with mild spurring and mild/moderate capsular hypertrophy Glenohumeral Joint: Small joint effusion. No significant spurring. Labrum: The labrum appears grossly intact given limitation of non-arthrogram study. Biceps Tendon: The long head of biceps is in normal location within bicipital groove. Bone marrow signal: No focal abnormal marrow signal is appreciated. Other: No additional significant abnormality is appreciated. IMPRESSION: Moderate degenerative changes are present. No rotator cuff or labral tear seen. [facility], , 11/22/2024 5:53 PM
--- NOTE | 2024-11-22 19:15 | MR ---
EXAMINATION TYPE: MR cervical spine wo con DATE OF EXAM: 11/22/2024 4:07 PM COMPARISON: 04/26/2020. CLINICAL INDICATION: Female, 68 years old with history of M48.02; PHH, Neck pain into LT shoulder TECHNIQUE: Multi planar, multi sequence imaging was performed utilizing: T1-weighted, T2-weighted, an d turbo inversion recovery imaging of the cervical spine. IV Contrast: mL (None, if empty) FINDINGS: Alignment: The cervical vertebral bodies have preserved heights. Alignment is within normal limits gi otshia patient positioning. Bones: Osteophytes and disc space narrowing most pronounced at the C4-C7 vertebral levels. Cord: The spinal cord is unremarkable with regards to their signal intensity and morphology. Discs: Intervertebral disc signal is maintained. C2-C3: No significant disc pathology. The spinal canal is patent. No neural foraminal stenosis. C3-C4: No significant disc pathology. The spinal canal is patent. No neural foraminal stenosis. C4-C5: A disc osteophyte complex is present with mild spinal canal stenosis. Bilateral facet and unc overtebral joint arthropathy are present with moderate to severe bilateral neural foraminal stenosis. C5-C6: No significant disc pathology. The spinal canal is patent. Bilateral facet and uncovertebral joint arthropathy are present with mild to moderate bilateral neural foraminal stenosis. C6-C7: No significant disc pathology. The spinal canal is patent. No neural foraminal stenosis. C7-T1: No significant disc pathology. The spinal canal is patent. No neural foraminal stenosis. Other: None. IMPRESSION: 1. No evidence for disc herniation or significant spinal canal stenosis. 2. 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 These are similar to prior. [facility], , 11/22/2024 7:13 PM
== END | disposition home or self-care (01) ==
LOC: RADMRIMAIN 14:49
PROVIDERS: ATTEND Orthopaedic Surgery
DX: M48.02 Spinal stenosis, cervical region (principal); M47.812 Spondylosis without myelopathy or radiculopathy, cervical region; M50.321 Other cervical disc degeneration at C4-C5 level; M19.012 Primary osteoarthritis, left shoulder
CPT/HCPCS: 72141